=== PATIENT | male | born 1995 | race Caucasian/White ===

== ENCOUNTER 2020-05-26 19:14 | Emergency (ER) | payer OTHER, SELFPAY ==
--- NOTE | 2020-05-26 19:27 | ED_ITS ---
HPI - General Adult General Chief complaint: Extremity Injury, Upper Stated complaint: states left forearm broken from wake boarding Time Seen by Provider: 05/26/20 19:27 Source: patient Mode of arrival: Ambulatory Limitations: no limitations History of Present Illness HPI narrative: 25-year-old male here for evaluation of a injury that he sustained while wakeboarding. He states that he got his left arm caught up in the toe rope. He states that he felt/heard a pop. Since then he has had pain in his left forearm. His left elbow left shoulder and left wrist are unremarkable. He reports no other injuries from the event. Has not tried anything for the symptoms except for ice prior to arrival Review of Systems Constitutional Constitutional: Denies fever(s) Musculoskeletal Musculoskeletal: Denies tingling Comments: Left forearm injury Integumentary/Breasts Skin/Breast: Denies lesions and Denies rash Neurologic Neurologic: Denies tingling Hematologic/Lymphatic Hematologic/Lymphatic: Denies easy bleeding and Denies easy bruising Patient History Medical History Atypical chest pain (Inactive) Social History Smoking Status: Never smoker Exam Initial Vital Signs Initial Vital Signs: Vital Signs Temperature 99.2 F 05/26/20 19:32 Pulse Rate 108 H 05/26/20 19:32 Respiratory Rate 16 05/26/20 19:32 Blood Pressure 142/88 H 05/26/20 19:32 Pulse Oximetry 100 05/26/20 19:32 Const General: cooperative, comfortable and well developed Limitations: mental status not altered Cardio Pulses: radial pulses present on the left Skin Other: Sunburn on the shoulders. Some bruising to the distal left forearm radial aspect. Neuro Sensory Exam: no sensory deficits noted Extrem Other: Left shoulder unremarkable. Left elbow unremarkable. Can pronate without problems however does have some difficulty with supination. Can not somewhat flex and extend left wrist. Left hand unremarkable Psych Appearance: grossly normal and well kempt Course Orders Ordered: ED Orders 05/26/20 19:29 XR forearm LT 2V Stat Vital Signs Vital signs: Vital Signs - 8 hr 05/26/20 19:32 05/26/20 19:39 05/26/20 20:37 Temperature 99.2 F Pulse Rate 108 H 97 H Pulse Rate [Left Radial] 112 H Respiratory Rate 16 12 Blood Pressure 142/88 H 153/90 H Pulse Oximetry 100 98 Medical Decision Making Imaging Data Extremity x-ray #1: Radiologist's Impression: [address] [address] XRay Report Signed Patient: Corey Payton CMR#: [id number] : 1995Acct:[id number] Age/Sex: MDate of Service: 05/26/20 Loc: ED Accession Number: [id number] Procedure: XR forearm LT 2V Ordering Provider: Amarjit Munoz D.O. PROCEDURE: XR FOREARM RT 2V INDICATIONS: pain distal forearm after fall TECHNIQUE: 2 views of the forearm were acquired. COMPARISON: [facility], , WRIST MINIMUM 3 VIEWS LEFT, 05/16/2011, 11:38. FINDINGS: Bones: Mildly displaced ulna styloid fracture, unchanged compared to 2010. No acute fracture is identified. No suspicious bony lesions. Soft tissues: No suspicious soft tissue calcifications or masses. IMPRESSION: No visualized acute fracture or dislocation. However, if clinical concern and/or pain persist, short interval imaging followup in 7-10 days is recommended, as occult injury cannot be definitively excluded. Dictated by: Valerie Stover M.D. on 05/26/2020 at 20:07 Approved by: Valerie Stover M.D. on 05/26/2020 at 20:[address] [facility] Narrative Medical decision making narrative: X-ray show no fractures. Patient is neurovascularly intact. I did discuss the use of ice and elevation. Discussed return precautions and follow-up instructions. Patient expressed understanding and agreement. Discharge Plan Departure Patient Disposition: Home Clinical Impression: Contusion of arm, left Qualifiers: Encounter type: initial encounter Qualified Code(s): S40.022A - Contusion of left upper arm, initial encounter Discharge Date/Time: 05/26/20 20:40 Instructions: DI for Arm Pain Activity Restrictions/Additional Instructions: There were no fractures on the x-rays. Recommend that you continue with the ice. You have no restrictions on your activity. Return to the emergency department for any new or worsening symptoms.
[2020-05-26 19:32] VITALS: BP 142/88; PULSE 108; RESP 16; TEMP 37.3; O2SAT 100; BMI 25.8
[2020-05-26 19:39] VITALS: PULSE 112
[2020-05-26 20:37] VITALS: BP 153/90; PULSE 97; RESP 12; O2SAT 98
== END 2020-05-26 20:40 | disposition home or self-care (01) ==
PROVIDERS: Emergency Provider Emergency Medicine
DX: S40.022A Contusion of left upper arm, initial encounter (principal); W19.XXXA Unspecified fall, initial encounter
CPT/HCPCS: 73090; 99283